=== PATIENT | male | born 1990 | race Caucasian/White ===

== ENCOUNTER 2019-11-01 13:09 | Emergency (ER) | payer MEDICARE, MEDICAID, SELFPAY ==
[2019-11-01 13:08] VITALS: BP 139/80; PULSE 95; RESP 16; TEMP 36.7; O2SAT 100
[2019-11-01 13:42] LABS: Basophils Absolute Auto 0.1 K/mm3 (0.0-0.1); Basophils Percent Auto 0.4 % (0.2-1.2); Eosinophils Percent Auto 0.3 % (0-4.4); Hematocrit 45.7 % (42.0-52.0); Hemoglobin 15.6 g/dL (14.0-18.0); Immature Granulocyte Absolute 0.04 K/mm3 (0.00-0.031); Immature Granulocyte Percent A 0.3 % (0-0.5); Lymphocytes Absolute Auto 1.97 K/mm3 (0.9-3.2); Mean Corpuscular HGB Conc 34.1 g/dl (32-36); Mean Corpuscular Hemoglobin 31.7 pg (26-34); Mean Corpuscular Volume 92.9 fl (80-100); Mean Platelet Volume 9.4 fl (7.4-10.4); Monocytes Percent Auto 8.1 % (2.6-8.5); Neutrophils Absolute Auto 9.2 K/mm3 (1.3-6.7); Neutrophils Percent Auto 74.9 % (45.5-73.1); Platelet Count Result 311 k/mm3 (150-375); Red Blood Count 4.92 M/mm3 (4.6-6.20); White Blood Count 12.3 K/mm3 (4.5-10.0)
[2019-11-01 13:57] LABS: Alanine Aminotransferase 25 U/L (4-50); Albumin Level 4.7 g/dL (3.5-5.1); Alkaline Phosphatase 92 U/L (38-126); Aspartate Amino Transferase 27 U/L (17-59); Bilirubin,Total 0.5 mg/dL (0.2-1.3); Blood Urea Nitrogen 15 mg/dL (9-20); Calcium 9.5 mg/dL (8.4-10.2); Carbon Dioxide 25 mmol/L (22-30); Chloride 104 mmol/L (98-107); Estimated CRCL calculation 119 ml/min; Estimated Glomerular Filt Rate > 60; Glucose 107 mg/dL (75-110); Potassium 4.5 mmol/L (3.4-5.0); Sodium 137 mmol/L (137-145)
[2019-11-01 13:59] LABS: Ethanol < 10 mg/dL (<10)
--- NOTE | 2019-11-01 14:07 | ED.GENADULT ---
HPI - General Adult General Chief complaint: Psychiatric Symptoms <EDILBERTO Vieira Last Filed: 11/01/19 21:36> Stated complaint: SI <EDILBERTO Vieira Last Filed: 11/01/19 21:36> Time Seen by Provider: 11/01/19 13:12 <EDILBERTO Vieira Last Filed: 11/01/19 21:36> Source: patient and EMS <EIDLBERTO Vieira Last Filed: 11/01/19 21:36> Mode of arrival: EMS <EDILBERTO Vieira Last Filed: 11/01/19 21:36> Limitations: no limitations <EDILBERTO Vieira Last Filed: 11/01/19 21:36> History of Present Illness HPI narrative: Patient is a 29-year-old male who presents with suicidal ideation longstanding history of self-harm suicidal attempts with recent hospitalization. Patient notes he was kicked out of the last psych hospitalization and has been off his medications. Patient also notes illicit drug dependence but denies any current use with typically using alcohol methamphetamine and cocaine. Patient is homeless. Patient notes desire to harm himself and does not feel like there is any reason to go on and is seeking help prior to doing any self-harm. <EDILBERTO Vieira Last Filed: 11/01/19 21:36> Related Data Home medications: Home Medications Medication Instructions Recorded Confirmed Thorazine 100 mg PO QID 11/01/19 bupropion HCl mg PO 11/01/19 clonazepam 1 mg PO BID 11/01/19 11/01/19 clonidine HCl TID 11/01/19 gabapentin 11/01/19 <EDILBERTO Vieira Last Filed: 11/01/19 21:36> Allergies/adverse reactions: Allergies Allergy/AdvReac Type Severity Reaction Status Date / Time haloperidol Allergy Unknown Muscle Verified 08/10/18 12:28 Spasms hydroxyzine [From Atarax] Allergy Unknown Unknown Verified 03/31/19 16:46 <EDILBERTO Vieira Last Filed: 11/01/19 21:36> Review of Systems Review of Systems: All systems reviewed & are unremarkable except as noted in HPI and below <EDILBERTO Vieira Last Filed: 11/01/19 21:36> [facility] Past Medical History Medical History: Medical History Anxiety Depression Previous known suicide attempt Schizophrenia Self-mutilation <Jayme Pretty PA-C - Last Filed: 11/01/19 21:36> Surgical History Surgical History: Surgical History No history of previous surgery <Jayme Pretty PA-C - Last Filed: 11/01/19 21:36> Social History Social History: Social History Smoking status: Smoker, status unknown Tobacco type: cigarettes Gender identity (if verbalized by the patient): Male <Jayme Pretty PA-C - Last Filed: 11/01/19 21:36> Exam Narrative: Exam Narrative: GENERAL: Well-appearing, well-nourished, and in no acute distress. HEAD: Normocephalic, atraumatic. EYES: PERRLA and EOMI. ENT: Nares clear, no rhinorrhea or epistaxis. Mucous membranes moist. Oropharynx without tonsillar hypertrophy exudate or other lesions. NECK: Supple. No adenopathy or masses. CHEST: Clear to auscultation. No respiratory distress. No wheezes rales or rhonchi HEART: Regular rate and rhythm. No murmur heard. Normal peripheral pulses. ABDOMEN: Soft, nontender, nondistended EXTREMITIES: Normal range of motion. No edema. SKIN: Warm, dry, no rash. NEURO: No focal deficits. Alert and oriented x3. Cranial nerves II through XII grossly intact PSYCH: Normal mood and affect. <Jayme Pretty PA-C - Last Filed: 11/01/19 21:36> Course Course Emergency Course: 2134 patient in the room stable in no distress pending psych placement Patient has been evaluated by crisis and is pending placement <Jayme Pretty PA-C - Last Filed: 11/01/19 21:36> [facility]/PA Physician Supervision Patient accepted for placement to [facility] in [place], [place]. Pt given ativan to help with anxiety t
[2019-11-01 14:13] LABS: Add Urine Microscopic? NO; Appearance Urine Clear (Clear); Bilirubin Urine Negative (Negative); Blood Urine Negative (Negative); Color Urine Yellow (Yellow); Glucose Urine UA Negative (Negative); Ketones Urine Negative (Negative); Leukocyte Esterase Ur Negative LEU/UL (Negative); Nitrate Urine Negative (Negative); Protein Urine Negative (Negative); Specific Grav Ur 1.015 (1.001-1.035); Urobilinogen Urine Negative mg/dL (<2.0)
[2019-11-01 14:29] LABS: Amphetamine Screen Urine Negative (Negative); Barbiturate Screen Urine Negative (Negative); Benzodiazepines Screen Urine Negative (Negative); Cannabinoid Screen Urine Positive (Negative); Cocaine Screen Urine Negative (Negative); Methadone Screen Urine Negative (Negative); Opiate Screen Urine Negative (Negative); Phencyclidine Screen Urine Negative (Negative)
--- NOTE | 2019-11-01 16:40 | PC.NURSE ---
Yusra from crisis here evaluated patent at this time
[2019-11-01 16:48] VITALS: BP 106/67; PULSE 82; O2SAT 100
[2019-11-01 18:35] VITALS: BP 122/82; PULSE 81; RESP 16; O2SAT 100
--- NOTE | 2019-11-01 18:49 | PC.NURSE ---
[facility] called and states they have no beds
--- NOTE | 2019-11-01 20:18 | PC.NURSE ---
Cris GREEN RN AT [facility] IN [facility] CALLED AT THIS TIME TO INFORM THIS ED THAT THEIR PHYSICIAN DECLINED TO ACCEPT THIS PT DUE TO THE NEED OF [facility] CARE.
--- NOTE | 2019-11-01 22:52 | PC.NURSE ---
PT PACKET FAXED TO [facility] AT [phone] AT 212.
[2019-11-02 00:11] VITALS: BP 125/82; PULSE 78; RESP 18; TEMP 36.7; O2SAT 99
[2019-11-02] MEDS: LORAZEPAM 1 MG TABLET (01:39)
--- NOTE | 2019-11-02 03:41 | PC.NURSE ---
Addendum entered by Natalya De Santiago 11/02/19 05:30: Called [facility], they do not have the resources at this time. Try after 07:00 Addendum entered by Natalya De Santiago 11/02/19 05:27: Called for status....[facility] still trying to find a crew for trip. Original Note: 0033: Called [facility] to transport to [facility] near [place]. They will call back with an ETA.
[2019-11-02 06:49] VITALS: BP 142/85; PULSE 86; RESP 17; TEMP 36.5; O2SAT 100
[2019-11-02 07:17] VITALS: BP 112/57; PULSE 73; RESP 18; TEMP 36.5; O2SAT 97
--- NOTE | 2019-11-02 12:21 | PC.NURSE ---
Report given to [facility] at this time, transferred to [facility] at this time.
== END 2019-11-02 12:21 ==
PROVIDERS: Emergency Medicine Emergency Medical Services; Emergency Provider Emergency Medicine
DX: R45.851 Suicidal ideations (principal); F41.9 Anxiety disorder, unspecified; F32.9 Major depressive disorder, single episode, unspecified; F20.9 Schizophrenia, unspecified; F17.210 Nicotine dependence, cigarettes, uncomplicated; Z79.899 Other long term (current) drug therapy
CPT/HCPCS: 36415; 80053; 80307; 81003; 84443; 85025; 99285; A9270

== ENCOUNTER 2021-12-20 18:27 | Emergency (ER) | payer MEDICARE, MEDICAID, SELFPAY ==
--- NOTE | ~2021-12-20 | CT_ITS ---
EXAMINATION: CT soft tissue neck w con DATE: 12/20/2021 20:38 INDICATION: Tracheal stenosis TECHNIQUE: Computed tomography (CT) of the neck was performed with 75 mL Omnipaque-350 intravenous co ntrast. Automated exposure control and iterative reconstruction technique were employed. The dose-deniz gth product was 605.28 mGy-cm. COMPARISON: None FINDINGS: The thyroid gland is unremarkable. The submandibular and parotid glands are symmetric. There is n o cervical lymphadenopathy. There are no masses identified. The superior mediastinum is unremarka ble. Narrowing of the subglottic trachea, minimum diameter is 4 mm. Minimal secretions present in t he lower thoracic trachea. Parapharyngeal and pre-glottic fat planes are preserved. Arch great vess els carotids and vertebral arteries enhance normally. The orbits are unremarkable. Bilateral mucos al thickening in the maxillary sinuses. Visualized lung parenchyma is clear. No acute osseous findi ng. Periodontal disease. 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 Minimal secretions are present in the distal thoracic trachea. Reviewed, dictated and finalized at location K.
--- NOTE | ~2021-12-20 | XR_ITS ---
EXAMINATION: XR chest 2V Exam Date/Time: 12/20/2021 18:56 CDT HISTORY: shortness of breath; tracheostomy 1 mo ago; diaphoretic Comparison: None available. RESULT: Lines, tubes, and devices: None. Lungs and pleura: Clear. Cardiomediastinal silhouette: Stable. Other: No acute osseous or upper abdominal finding. IMPRESSION: No acute cardiopulmonary process. Reviewed, dictated and finalized at location K.
[2021-12-20 18:29] VITALS: BP 140/109; PULSE 130; RESP 26; TEMP 37.2; O2SAT 97
[2021-12-20 18:40] VITALS: PULSE 130
--- NOTE | 2021-12-20 18:42 | ECG_ITS ---
Measurements Intervals [place] Rate: 124 P: 27 AK: 149 QRS: 38 QRSD: 84 T: 26 QT: 300 QTc: 432 Interpretive Statements SINUS TACHYCARDIA WITH OCCASIONAL VENTRICULAR PREMATURE COMPLEXES LOW QRS VOLTAGE COMPARED TO ECG 08/10/2018 13:23:15 SINUS TACHYCARDIA NOW PRESENT Electronically Signed On 12-21-2021 14:17:12 CDT by Yayo Murillo M.D.
[2021-12-20 18:49] LABS: Basophils Absolute Auto 0.1 K/mm3 (0.0-0.1); Basophils Percent Auto 0.4 % (0.2-1.2); Eosinophils Absolute Auto 0.2 K/mm3 (0-0.3); Eosinophils Percent Auto 1.2 % (0-4.4); Hematocrit 49.8 % (42.0-52.0); Immature Granulocyte Absolute 0.03 K/mm3 (0.00-0.031); Immature Granulocyte Percent A 0.2 % (0-0.5); Lymphocytes Absolute Auto 3.82 K/mm3 (0.9-3.2); Lymphocytes Percent Auto 26.2 % (18.3-44.2); Mean Corpuscular HGB Conc 32.1 g/dl (32-36); Mean Corpuscular Hemoglobin 29.7 pg (26-34); Mean Corpuscular Volume 92.4 fl (80-100); Mean Platelet Volume 9.8 fl (7.4-10.4); Monocytes Absolute Auto 1.2 K/mm3 (0.1-0.6); Monocytes Percent Auto 8.2 % (2.6-8.5); Neutrophils Absolute Auto 9.3 K/mm3 (1.3-6.7); Neutrophils Percent Auto 63.8 % (45.5-73.1); Platelet Count Result 330 k/mm3 (150-375); Red Blood Count 5.39 M/mm3 (4.6-6.20); Red Cell Distribution Width 14.5 % (11.5-14.5); White Blood Count 14.6 K/mm3 (4.5-10.0)
[2021-12-20] MEDS: IPRATROPIUM BR 0.02% INH SOLN 0.5 MG/2.5 ML VIAL INHALATION (19:10)
[2021-12-20 19:12] VITALS: PULSE 99; RESP 18
[2021-12-20 19:17] VITALS: PULSE 115; RESP 18
--- NOTE | 2021-12-20 19:38 | ED.SOB ---
HPI - SOB/Dyspnea General Chief Complaint: Shortness of Breath/Dyspnea <Donald Rouse MD - Last Filed: 12/20/21 22:15> Stated Complaint: shortness of breath <Donald Rouse MD - Last Filed: 12/20/21 22:15> Time Seen by Provider: 12/20/21 18:48 <Donald Rouse MD - Last Filed: 12/20/21 22:15> History of Present Illness HPI Narrative: Patient is a 31-year-old male who presents ER with shortness of breath. Patient has history of tracheostomy due to an overdose and prolonged intubation. This occurred at [facility] in [place]. He then went to [facility] for rehab. We then could find no other placement for him so he was discharged home to his father's house a couple weeks ago. His trach was removed and he reports he has had difficulty breathing since then. Reports he feels like he is breathing through a straw. However last couple days he has had some runny nose with postnasal drip. He feels it running down his throat makes him cough. He occasionally feels like something gets stuck and he cannot breathe. Upon arrival he is diaphoretic and having some stridor but can speak in full sentences. <Donald Rouse MD - Last Filed: 12/20/21 22:15> Related Data Allergies/Adverse Reactions: Allergies Allergy/AdvReac Type Severity Reaction Status Date / Time No Known Allergies Allergy Verified 12/20/21 18:35 <Donald Rouse MD - Last Filed: 12/20/21 22:15> Review of Systems Review of Systems: All systems reviewed & are unremarkable except as noted in HPI and below <Donald Rouse MD - Last Filed: 12/20/21 22:15> Constitutional: Constitutional: Denies chills and Denies fever(s) <Donald Rouse MD - Last Filed: 12/20/21 22:15> ENT: Reports nasal congestion <Donald Rouse MD - Last Filed: 12/20/21 22:15> Respiratory: Respiratory: Reports cough, Reports dyspnea and Denies wheezing <Donald Rouse MD - Last Filed: 12/20/21 22:15> Gastrointestinal: Gastrointestinal: Denies abdominal pain, Denies nausea and Denies vomiting <Donald Rouse MD - Last Filed: 12/20/21 22:15> PMFSH Past Medical History Medical History: Medical History (Updated 12/21/21 @ 01:54 by Anthony Jones MD) Anxiety Depression Previous known suicide attempt Schizophrenia Self-mutilation <Donald Rouse MD - Last Filed: 12/20/21 22:15> Surgical History Surgical History: Surgical History (Updated 12/20/21 @ 22:15 by Donald Rouse MD) History of tracheostomy <Donald Rouse MD - Last Filed: 12/20/21 22:15> Social History Social History: Social History Smoking status: Smoker, status unknown Tobacco type: cigarettes Gender identity (if verbalized by the patient): Male <Donald Rouse MD - Last Filed: 12/20/21 22:15> Exam Narrative: GENERAL: Uncomfortable-appearing, well-nourished, and in moderately distressed. HEAD: Normocephalic, atraumatic. EYES: PERRL and EOMI. ENT: Mucous membranes moist. Normal-appearing posterior oropharynx without tonsillar hypertrophy or uvular edema. CHEST: Clear to auscultation. Moderate respiratory distress. There is some inspiratory stridor intermittently. Patient can speak in full sentences. HEART: Tachycardic and regular. Normal peripheral pulses. ABDOMEN: Soft, nontender, nondistended. EXTREMITIES: Normal range of motion. No edema. SKIN: Warm, dry, no rash. NEURO: Alert and oriented x3. PSYCH: Normal mood and affect. <Donald Rouse MD - Last Filed: 12/20/21 22:15> Course Reevaluation(s) Reevaluation #1: Patient laying in bed resting comfortably. There is no stridor at this time and he has no distress. He is receiving nebulizer treatment as well as some IV steroids. Imaging shows tracheal stenosis at 4 mm at the narrowest portion. We will contact [facility] for possible transfer next for evaluat
[2021-12-20] MEDS: methylPREDNISolone SOD SUCC 125 MG VIAL IV PUSH (19:53)
[2021-12-20] MEDS: SODIUM CHLORIDE 0.9% IV 1,000 ML 999 ML IV CONT (19:54)
[2021-12-20 20:00] LABS: Amphetamine Screen Urine Negative (Negative); Barbiturate Screen Urine Negative (Negative); Benzodiazepines Screen Urine Negative (Negative); Cannabinoid Screen Urine Positive (Negative); Cocaine Screen Urine Negative (Negative); Methadone Screen Urine Negative (Negative); Opiate Screen Urine Negative (Negative); Phencyclidine Screen Urine Negative (Negative)
[2021-12-20 20:01] LABS: Alanine Aminotransferase 37 U/L (6-50); Albumin Level 4.4 g/dL (3.5-5.1); Alkaline Phosphatase 76 U/L (38-126); Anion Gap 11 mmol/L (8-16); Aspartate Amino Transferase 26 U/L (17-59); Bilirubin,Total 0.3 mg/dL (0.2-1.3); Blood Urea Nitrogen 13 mg/dL (9-20); Calcium 8.6 mg/dL (8.4-10.2); Carbon Dioxide 26 mmol/L (22-30); Chloride 105 mmol/L (98-107); Estimated CRCL calculation 151 ml/min; Estimated Glomerular Filt Rate > 60; Glucose 113 mg/dL (65-110); Sodium 142 mmol/L (137-145)
[2021-12-20 22:32] LABS: SARS-CoV-2 RNA PCR Negative
--- NOTE | 2021-12-20 23:16 | PC.NURSE ---
Report received from STEVO Ponce. This nurse assumed care of patient at this time.
[2021-12-21 00:46] VITALS: BP 154/73; PULSE 111; RESP 20; O2SAT 98
[2021-12-21 02:16] VITALS: BP 159/89; PULSE 111; RESP 13; O2SAT 99
== END 2021-12-21 02:07 | disposition short-term general hospital (02) ==
PROVIDERS: Emergency Provider Emergency Medicine
DX: J39.8 Other specified diseases of upper respiratory tract (principal); Z20.822 Contact with and (suspected) exposure to COVID-19; R00.0 Tachycardia, unspecified; I49.3 Ventricular premature depolarization
CPT/HCPCS: 36415; 70491; 71046; 80053; 80307; 85025; 93005; 94640; 96361; 96374; 99285; C9803; J2930; J7030; Q9967; U0003; U0005

== ENCOUNTER 2021-12-25 18:21 | Emergency (ER) | payer MEDICARE, MEDICAID, SELFPAY ==
[2021-12-25 18:24] VITALS: BP 148/91; PULSE 119; RESP 16; TEMP 36.9; O2SAT 100
--- NOTE | 2021-12-25 18:58 | ED.SKABFB ---
HPI - Skin/Abscess/Foreign Bdy General Chief complaint: Skin/Abscess/Foreign Body Stated complaint: swelling from iv site Time Seen by Provider: 12/25/21 18:42 Source: patient Mode of arrival: ambulatory Limitations: no limitations History of Present Illness HPI narrative: This is a 31 year old male that presents to the ER for left arm pain and swelling today. Reports at the area of his recent IV site. Was admitted for surgery at [facility] due to tracheal stenosis. Was discharged 2 days ago. Noted redness, swelling and abnormal drainage from the IV site. Also reports a previous injury to the right 5th finger. Has had ongoing pain for the last couple of months. Denies fever, chest pain or shortness of breath. Related Data Allergies Allergy/AdvReac Type Severity Reaction Status Date / Time No Known Allergies Allergy Verified 12/20/21 18:35 Review of Systems Review of Systems: CONSTITUTIONAL: Denies fever SKIN: Reports erythema and edema All systems reviewed & are unremarkable except as noted in HPI and below PMFSH Past Medical History Medical History (Updated 12/25/21 @ 19:15 by Misti Kay PA-C) Anxiety Depression Previous known suicide attempt Schizophrenia Self-mutilation Surgical History Surgical History (Updated 12/20/21 @ 22:15 by Donald Rouse MD) History of tracheostomy Social History Social History Smoking status: Smoker, status unknown Tobacco type: cigarettes Gender identity (if verbalized by the patient): Male Exam Narrative: GENERAL: Well-appearing, well-nourished, and in no acute distress. HEAD: Normocephalic, atraumatic. EYES: EOMI. CHEST: No respiratory distress. HEART: Regular rate EXTREMITIES: Normal range of motion. Mild edema with overlying erythema to the left AC with purulent drainage noted at IV site. Normal radial pulses. Normal sensation SKIN: Warm, dry, no rash. NEURO: No focal deficits. Alert and oriented x3. PSYCH: Normal mood and affect Course Vital Signs Vital signs: Vital Signs Temperature 98.5 F 12/25/21 18:24 Pulse Rate 119 H 12/25/21 18:24 Respiratory Rate 16 12/25/21 18:24 Blood Pressure 148/91 H 12/25/21 18:24 Pulse Oximetry 100 12/25/21 18:24 Oxygen Delivery Room Air 12/25/21 18:24 Temperature 98.5 F 12/25/21 18:24 Pulse Rate 119 H 12/25/21 18:24 Respiratory Rate 16 12/25/21 18:24 Blood Pressure 148/91 H 12/25/21 18:24 Pulse Oximetry 100 12/25/21 18:24 Oxygen Delivery Room Air 12/25/21 18:24 MDM - Skin/Abscess/Foreign Bdy MDM Narrative Medical decision making narrative: Patient presents to the emergency departments with redness and swelling of the left arm after recent IV insertion. Patient is afebrile. Tachycardic upon arrival. IV insertion site with notable superlative thrombophlebitis. Laboratory and imaging evaluation was ordered. I did do a culture of the purulent drainage from the area. Patient then eloped after being seen, and before any further evaluation and management Critical Care Time Critical Care Time Critical Care Time: No Discharge Plan Discharge Clinical Impression: Thrombophlebitis, Cellulitis Patient Disposition: Elopement After Seen by Prov Condition: Serious Follow-up/Referrals: PHYSICIAN,HUMAN RESOURCES ASSISTANT [Primary Care Provider] -
--- NOTE | 2021-12-25 19:20 | PC.NURSE ---
IN ROOM TO DRAW BLOOD AND PT IS AGITATED YELLING ABOUT NOT GETTING NARCOTICS IN THE ED. 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 PT ENCOURAGE TO STAY FOR EVALUATION BUT REFUSED AND YELLED I DON'T CARE IF MY FUCKING ARM ROTS OFF.
== END 2021-12-25 19:23 | disposition left against medical advice (07) ==
LOC: ANHED 19:20
PROVIDERS: Emergency Provider General Practice
DX: T80.1XXA Vascular complications following infusion, transfusion and therapeutic injection, initial encounter (principal); I80.8 Phlebitis and thrombophlebitis of other sites; T80.29XA Infection following other infusion, transfusion and therapeutic injection, initial encounter; L03.114 Cellulitis of left upper limb; Y84.8 Other medical procedures as the cause of abnormal reaction of the patient, or of later complication, without mention of misadventure at the time of the procedure
CPT/HCPCS: 87070; 87147; 87181; 87186; 87205; 99283

== ENCOUNTER 2022-02-08 11:11 | Emergency (ER) | payer MEDICARE, MEDICAID, SELFPAY ==
--- NOTE | ~2022-02-08 | XR_ITS ---
EXAMINATION: XR chest 2V 02/08/2022 13:45 INDICATION: Dyspnea PROCEDURE: 2 view chest COMPARISON: 12/20/2021 FINDINGS: The lungs are clear. The cardiomediastinal silhouette is within normal limits. There are no pleural effusions. There is no pneumothorax suspected. IMPRESSION: 1: NO ACUTE CARDIOPULMONARY DISEASE. Reviewed, dictated and finalized at location B.
[2022-02-08 11:14] VITALS: BP 148/90; PULSE 126; RESP 18; TEMP 37; O2SAT 99
--- NOTE | 2022-02-08 11:18 | ECG_ITS ---
Measurements Intervals [place] Rate: 117 P: 38 PA: 139 QRS: 16 QRSD: 98 T: 32 QT: 284 QTc: 396 Interpretive Statements SINUS TACHYCARDIA DELAYED PRECORDIAL R/S TRANSITION BASELINE ARTIFACT- I, II, AVR, AVL, AVF, V1 ABNORMAL ECG COMPARED TO ECG 12/20/2021 18:53:46 NO SIGNIFICANT CHANGES Electronically Signed On 02-08-2022 11:31:01 CDT by Cheo Vazquez D.O.
[2022-02-08 12:04] LABS: Basophils Absolute Auto 0.1 K/mm3 (0.0-0.1); Basophils Percent Auto 0.4 % (0.2-1.2); Eosinophils Percent Auto 0.1 % (0-4.4); Hematocrit 46.5 % (42.0-52.0); Immature Granulocyte Absolute 0.09 K/mm3 (0.00-0.031); Immature Granulocyte Percent A 0.5 % (0-0.5); Lymphocytes Absolute Auto 1.94 K/mm3 (0.9-3.2); Lymphocytes Percent Auto 10.8 % (18.3-44.2); Mean Corpuscular HGB Conc 32.3 g/dl (32-36); Mean Corpuscular Hemoglobin 30.4 pg (26-34); Mean Corpuscular Volume 94.1 fl (80-100); Mean Platelet Volume 9.4 fl (7.4-10.4); Monocytes Absolute Auto 0.8 K/mm3 (0.1-0.6); Monocytes Percent Auto 4.4 % (2.6-8.5); Neutrophils Absolute Auto 15.1 K/mm3 (1.3-6.7); Neutrophils Percent Auto 83.8 % (45.5-73.1); Platelet Count Result 352 k/mm3 (150-375); Red Blood Count 4.94 M/mm3 (4.6-6.20); Red Cell Distribution Width 14.6 % (11.5-14.5)
[2022-02-08 12:14] LABS: Alanine Aminotransferase 34 U/L (6-50); Albumin Level 5.3 g/dL (3.5-5.1); Alkaline Phosphatase 89 U/L (38-126); Anion Gap 14 mmol/L (8-16); Aspartate Amino Transferase 31 U/L (17-59); Bilirubin,Total 0.6 mg/dL (0.2-1.3); Blood Urea Nitrogen 13 mg/dL (9-20); Carbon Dioxide 25 mmol/L (22-30); Chloride 100 mmol/L (98-107); Estimated CRCL calculation 131 ml/min; Estimated Glomerular Filt Rate > 60; Glucose 74 mg/dL (65-110); Potassium 3.9 mmol/L (3.4-5.0); Sodium 139 mmol/L (137-145)
[2022-02-08 13:48] LABS: SARS-CoV-2 RNA PCR Negative
[2022-02-08 14:15] LABS: Appearance Urine Clear (Clear); Bilirubin Urine Negative (Negative); Blood Urine Negative (Negative); Color Urine Yellow (Yellow); Glucose Urine UA Negative (Negative); Ketones Urine Negative (Negative); Leukocyte Esterase Ur Negative LEU/UL (Negative); Nitrate Urine Negative (Negative); Protein Urine Negative (Negative); Urobilinogen Urine 0.2 mg/dL (<2.0); pH Urine 6.5 (5.0-9.0)
--- NOTE | 2022-02-08 14:15 | ED.PSYCH ---
HPI - Psych General Chief Complaint: Psychiatric Symptoms <Nakita Lane Shelton PAL, DO - Last Filed: 02/08/22 19:14> Stated Complaint: Fatigue after walking a few miles <Nakita Peoples III, DO - Last Filed: 02/08/22 19:14> Time Seen by Provider: 02/08/22 13:34 <Nakita Peoples III, DO - Last Filed: 02/08/22 19:14> History of Present Illness HPI Narrative: Pt walked a significant distance to a [employer] store to get something to drink and then said he was having trouble breathing so they called 911. Pt states that he has lost all will to live and wants to kill self by taking overdose which he has done in the recent past which led to intubation and a tracheostomy. Pt has had intermittent trouble with trach ostomy site but has not followed up yet with surgery. <Nakita Peoples III, DO - Last Filed: 02/08/22 19:14> Related Data Home Medications: Home Medications Medication Instructions Recorded Confirmed albuterol sulfate 90 mcg/actuation inhalation 02/09/22 aerosol inhaler budesonide-formoterol HFA 80 inhalation 02/09/22 mcg-4.5 mcg/actuation aerosol inhaler (Symbicort) bupropion HCl 450 mg 24 hr tablet, mg PO 02/09/22 extended release buspirone 15 mg tablet mg 02/09/22 carbamazepine 200 mg tablet mg 02/09/22 chlorpromazine 100 mg tablet mg 02/09/22 clonazepam 0.5 mg tablet mg 02/09/22 clonidine HCl 0.2 mg tablet mg 02/09/22 gabapentin 600 mg tablet mg 02/09/22 lorazepam 0.5 mg tablet mg 02/09/[address] <Nakita [address] Shelton III, DO - Last Filed: 02/08/22 19:14> Allergies/Adverse Reactions: Allergies Allergy/AdvReac Type Severity Reaction Status Date / Time No Known Allergies Allergy Verified 12/20/21 18:35 <Nakita Peoples DEMARCO, DO - Last Filed: 02/08/22 19:14> Review of Systems Review of Systems: All systems reviewed & are unremarkable except as noted in HPI and below <Nakita Peoples III, DO - Last Filed: 02/08/22 19:14> PMFSH Past Medical History Medical History: Medical History (Updated 02/08/22 @ 14:[address] Shelton PAL DO) Anxiety Depression Previous known suicide attempt Schizophrenia Self-mutilation <Nakita Lane Peoples III, DO - Last Filed: 02/08/22 19:14> Surgical History Surgical History: Surgical History (Updated 12/20/21 @ 22:15 by Donald Rouse MD) History of tracheostomy <Nakita Lane Peoples III, DO - Last Filed: 02/08/22 19:14> Social History Social History: Social History Smoking status: Smoker, status unknown Tobacco type: cigarettes Substance use type: former substance user Gender identity (if verbalized by the patient): Male <Nakita Lane Peoples III, DO - Last Filed: 02/08/22 19:14> Exam Const: General: healthy appearing and no acute distress <Nakita Lane Peoples III, DO - Last Filed: 02/08/22 19:14> Nutritional Appearance: well nourished <Nakita Lane Peoples III, DO - Last Filed: 02/08/22 19:14> Orientation/consciousness: patient oriented x3 <Nakita Lane Peoples III, DO - Last Filed: 02/08/22 19:14> Limitations: no limitations <Nakita Lane Peoples III, DO - Last Filed: 02/08/22 19:14> HENMT: Head: normal to inspection <Nakita Lane Peoples III, DO - Last Filed: 02/08/22 19:14> Throat: posterior oropharynx normal <Nakita Lane Peoples III, DO - Last Filed: 02/08/22 19:14> Eyes: Conjunctivae: conjunctivae normal <Nakita Lane Peoples III, DO - Last Filed: 02/08/22 19:14> EOM: EOMs intact bilaterally <Nakita Lane Peoples III, DO - Last Filed: 02/08/22 19:14> Neck: Other: trach site looks ok <Nakita Lane Peoples III, DO - Last Filed: 02/08/22 19:14> Chest: Chest palpation & inspection: normal inspection of the chest <Nakita Lane Peoples III, DO - Last Filed: 02/08/22 19:14> Resp: Effort & Inspection: normal respiratory effort <Nakita Lane Peoples III, DO - Last Filed: 02/08/22 19:14> Auscultation: clear to auscultation bilaterall
[2022-02-08 14:25] LABS: Amphetamine Screen Urine Negative (Negative); Barbiturate Screen Urine Negative (Negative); Benzodiazepines Screen Urine Negative (Negative); Cannabinoid Screen Urine Positive (Negative); Cocaine Screen Urine Negative (Negative); Methadone Screen Urine Negative (Negative); Opiate Screen Urine Negative (Negative); Phencyclidine Screen Urine Negative (Negative)
[2022-02-08 14:43] LABS: Add Urine Microscopic? NO
[2022-02-08] MEDS: LORazepam (*CRX) 1 MG TABLET PO (14:58)
--- NOTE | 2022-02-08 16:06 | PC.NURSE ---
crisis here to evaluate pt.
--- NOTE | 2022-02-08 17:04 | PC.NURSE ---
Jacque from [facility] called and states they are at capacity.
--- NOTE | 2022-02-08 17:28 | PC.NURSE ---
[facility] called to speak with patient and do an assessment. Spoke with Jasmina from [facility] after the assessment and she states pt. is not wanting to go to their facility.
--- NOTE | 2022-02-08 18:58 | PC.NURSE ---
[facility] called requesting more information on pt. they state they will relay to the physician and call back with any updates.
--- NOTE | 2022-02-08 20:13 | PC.NURSE ---
barbara from dr venegas to order captain room service meds x1 at [facility]
[2022-02-08] MEDS: busPIRone HCL 10 MG, busPIRone HCL 5 MG 15 MG PO (20:48)
[2022-02-08] MEDS: chlorproMAZINE HCL 25 MG TABLET 100 MG PO (20:49)
[2022-02-08] MEDS: GABAPENTIN 300 MG CAPSULE 600 MG PO (20:49)
[2022-02-08] MEDS: carBAMazepine 200 MG TABLET PO (20:49)
[2022-02-08] MEDS: cloNIDine HCL 0.1 MG TABLET 0.2 MG PO (20:54)
[2022-02-09] MEDS: diphenhydrAMINE HCl INJ 50 MG/ML VIAL IM (00:40)
[2022-02-09] MEDS: LORazepam INJ (*CRX) 2 MG/ML VIAL IM (00:40)
--- NOTE | 2022-02-09 03:10 | PC.NURSE ---
Patient report received from STEVO Malhotra. All questions answered and care of patient assumed. Patient resting quietly in bed with lights dimmed. Eyes closed with regular, non-labored respirations. Patient safety lamp keeper remains at bedside. Will continue to address needs as they arise.
[2022-02-09 06:35] VITALS: BP 142/93; PULSE 80; RESP 14; TEMP 36.5; O2SAT 98
[2022-02-09] MEDS: ALBUTEROL SULFATE NEB 2.5 MG/3 ML INH 5 MG INHALATION (07:13)
--- NOTE | 2022-02-09 07:15 | PC.NURSE ---
Patient yelling out aggressively demanding breathing treatment and asking what is taking so long. Patient remains lying in bed but yelling profanity loudly. at bedside. and Efrain KOENIG contacted for support.
[2022-02-09] MEDS: LORazepam (*CRX) 1 MG TABLET PO (07:49)
--- NOTE | 2022-02-09 07:50 | PC.NURSE ---
Awaiting placement for psych bed. Intermittently yells out and curses. Sitter at bedside.
--- NOTE | 2022-02-09 08:20 | PC.NURSE ---
Pt standing in doorway of room. States he is no longer suicidal and wants to be discharged. Requests to speak to ERP.
== END 2022-02-09 08:47 | disposition home or self-care (01) ==
PROVIDERS: Emergency Provider Emergency Medicine
DX: F32.A Depression, unspecified (principal); Z20.822 Contact with and (suspected) exposure to COVID-19; F41.9 Anxiety disorder, unspecified; F20.9 Schizophrenia, unspecified; F17.210 Nicotine dependence, cigarettes, uncomplicated; Z79.899 Other long term (current) drug therapy
CPT/HCPCS: 36415; 71046; 80053; 80307; 81003; 85025; 93005; 94640; 96372; 99284; A9270; C9803; J1200; J2060; U0003; U0005

== ENCOUNTER 2022-05-17 01:20 | Emergency (ER) | payer MEDICARE, MEDICAID, SELFPAY ==
[2022-05-17] VITALS (11 sets, daily range): BP systolic 135–157; BP diastolic 102–120; PULSE 96–123; RESP 16–24; TEMP 36.4–36.9; O2SAT 91–96
--- NOTE | ~2022-05-17 | XR_ITS ---
EXAMINATION: XR hand RT min 3V DATE: 05/17/2022 05:25 INDICATION: Right hand pain. TECHNIQUE: 3 views of right hand were obtained. COMPARISON: None. FINDINGS: Bone alignment is normal. No fracture. There is mild osteoarthritis of first carpometacarpa l joint, first metacarpophalangeal joint, and first interphalangeal joint. IMPRESSION: 1. Mild polyarticular osteoarthritis. Reviewed, dictated and finalized at location A. LE ARCHITECT
--- NOTE | ~2022-05-17 | CT_ITS ---
EXAMINATION: CT soft tissue neck w con DATE: 05/17/2022 08:01 INDICATION: Tracheal stenosis. TECHNIQUE: Computed tomography (CT) of the neck was performed with 75 mL Omnipaque-350 intravenous co ntrast. Automated exposure control and iterative reconstruction technique were employed. The dose-deniz gth product was 565.06 mGy-cm. COMPARISON: CTA neck 12/20/2021 FINDINGS: There are no pathologically enlarged lymph nodes. The cervical carotid arteries are normal. There is a 9 mm nodule in right thyroid lobe, likely not clinically significant. Again seen is focal stenosis of the trachea at the site of prior tracheostomy measuring 4 x 5 mm. There is mild mucosal thickening in the paranasal sinuses. There are periapical lucencies around tooth 25. There are multip le broken molars. There is a carious lesion of tooth 14. There is mild cervical spondylosis. IMPRESSION: 1. Focal tracheal stenosis at the site of prior tracheostomy again seen. 2. Dental disease. Reviewed, dictated and finalized at location A. S ASSISTANT AND FEEDER
--- NOTE | ~2022-05-17 | XR_ITS ---
EXAMINATION: XR chest 1V portable DATE: 05/17/2022 04:20 INDICATION: Cough. TECHNIQUE: A single frontal view of the chest was obtained. COMPARISON: Chest 2 views 02/08/2022, neck CT 12/20/2021 FINDINGS: There is mild atelectasis in the lower lung zones. No pleural effusion or pneumothorax. The heart size is normal. IMPRESSION: 1. Mild atelectasis in the lower lung zones. Reviewed, dictated and finalized at location A. OGRAPHIC TECHNOLOGIST
--- NOTE | 2022-05-17 02:45 | PC.NURSE ---
patient continues to pace and talk loudly on the phone and to noone about wait time and how he needs to be seen last time the rushed me back pateint then begans stating i know they are going to drug test me and what they find is not why im here
--- NOTE | 2022-05-17 03:55 | PC.NURSE ---
Patient states I just want to know what I was given on new years when I was given pot. Patient states I need a xray of my hand, I ave been hallucinating, been scatter brain and SI and HI for the past few days and havent slept since then. Patient states he needs multiple things done before I leave here.
[2022-05-17] MEDS: LORazepam (*CRX) 1 MG TABLET PO (04:20)
[2022-05-17 04:56] LABS: Basophils Absolute Auto 0.1 K/mm3 (0.0-0.1); Basophils Percent Auto 0.6 % (0.2-1.2); Eosinophils Absolute Auto 0.2 K/mm3 (0-0.3); Eosinophils Percent Auto 1.6 % (0-4.4); Hematocrit 45.3 % (42.0-52.0); Hemoglobin 14.7 g/dL (14.0-18.0); Immature Granulocyte Absolute 0.05 K/mm3 (0.00-0.031); Immature Granulocyte Percent A 0.4 % (0-0.5); Immature Platelet Fraction Pct 2.9 % (0.9-11.2); Lymphocytes Absolute Auto 2.97 K/mm3 (0.9-3.2); Lymphocytes Percent Auto 25.3 % (18.3-44.2); Mean Corpuscular HGB Conc 32.5 g/dl (32-36); Mean Corpuscular Hemoglobin 31.4 pg (26-34); Mean Corpuscular Volume 96.8 fl (80-100); Mean Platelet Volume 9.6 fl (7.4-10.4); Monocytes Percent Auto 8.2 % (2.6-8.5); Neutrophils Absolute Auto 7.5 K/mm3 (1.3-6.7); Neutrophils Percent Auto 63.9 % (45.5-73.1); Platelet Count Result 293 k/mm3 (150-375); Red Blood Count 4.68 M/mm3 (4.6-6.20); Red Cell Distribution Width 12.8 % (11.5-14.5); White Blood Count 11.8 K/mm3 (4.5-10.0)
[2022-05-17 05:03] LABS: Ethanol < 10 mg/dL (<10)
[2022-05-17 05:09] LABS: Alanine Aminotransferase 28 U/L (6-50); Albumin Level 4.7 g/dL (3.5-5.1); Alkaline Phosphatase 96 U/L (38-126); Anion Gap 10 mmol/L (8-16); Aspartate Amino Transferase 30 U/L (17-59); Bilirubin,Total 0.5 mg/dL (0.2-1.3); Blood Urea Nitrogen 16 mg/dL (9-20); Calcium 8.7 mg/dL (8.4-10.2); Carbon Dioxide 27 mmol/L (22-30); Chloride 103 mmol/L (98-107); Estimated Glomerular Filt Rate > 60; Glucose 93 mg/dL (65-110); Potassium 4.3 mmol/L (3.4-5.0); Sodium 140 mmol/L (137-145)
[2022-05-17 05:15] LABS: Influenza A QL RT-PCR Negative (Negative); Influenza B QL RT-PCR Negative (Negative); SARS-CoV-2 RNA PCR Negative
[2022-05-17] MEDS: IBUPROFEN 600 MG TABLET PO (05:25)
--- NOTE | 2022-05-17 05:49 | PC.NURSE ---
Patient yelling in room speaking with the voices in my head.
[2022-05-17] MEDS: IPRATROPIUM BR 0.02% INH SOLN 0.5 MG/2.5 ML VIAL INHALATION (05:50)
--- NOTE | 2022-05-17 06:46 | PC.NURSE ---
Patient in CT at this time.
--- NOTE | 2022-05-17 06:50 | ED.GENADULT ---
HPI - General Adult General Chief complaint: Shortness of Breath/Dyspnea <Yoan Enamorado DO - Last Filed: 05/17/22 06:53> Stated complaint: sob <Yoan Enamorado DO - Last Filed: 05/17/22 06:53> Time Seen by Provider: 05/17/22 03:53 <Yoan Enamorado DO - Last Filed: 05/17/22 06:53> Source: RN notes reviewed <Yoan Enamorado DO - Last Filed: 05/17/22 06:53> History of Present Illness HPI narrative: Patient presents emergency department from home for multiple complaints. Patient's initial complaint is that he has been short of breath. 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 States he does feel short of breath with the symptoms. He denies any fevers or chills he denies any chest pain he denies any abdominal pain nausea vomiting patient also notes pain to his right fifth digit states that this has been ongoing for the past month and a half states he does not want to tell me how it happened because that would incriminate himself but states that it has been mildly deformed since that time he also states that he has been having suicidal thoughts today he states he had suicidal thoughts earlier today states he has suicidal thoughts frequently he denies any attempt to harm himself he states that he is currently not suicidal <Yoan Enamorado DO - Last Filed: 05/17/22 06:53> Related Data Home medications: Home Medications Medication Instructions Recorded Confirmed albuterol sulfate 90 mcg/actuation inhalation 02/09/22 aerosol inhaler budesonide-formoterol HFA 80 inhalation 02/09/22 mcg-4.5 mcg/actuation aerosol inhaler (Symbicort) bupropion HCl 450 mg 24 hr tablet, mg PO 02/09/22 extended release buspirone 15 mg tablet mg 02/09/22 carbamazepine 200 mg tablet mg 02/09/22 chlorpromazine 100 mg tablet mg 02/09/22 clonazepam 0.5 mg tablet mg 02/09/22 clonidine HCl 0.2 mg tablet mg 02/09/22 gabapentin 600 mg tablet mg 02/09/22 lorazepam 0.5 mg tablet mg 02/09/22 <Yoan Enamorado DO - Last Filed: 05/17/22 06:53> Allergies/adverse reactions: Allergies Allergy/AdvReac Type Severity Reaction Status Date / Time No Known Allergies Allergy Verified 12/20/21 18:35 <Yoan Enamorado DO - Last Filed: 05/17/22 06:53> Review of Systems Review of Systems: Gen.: Denies fevers or chills Eyes: Denies eye pain or visual change ENT: Denies congestion Respiratory: See HPI CV: Denies chest pain or palpitations GI: Denies abdominal pain nausea, emesis or diarrhea Musculoskeletal: See HPI Neuro: Denies numbness, tingling, weakness or focal weakness Skin: Denies rash Psych: Reports suicidal ideation Except as documented, all other systems reviewed and negative <Yoan Enamorado DO - Last Filed: 05/17/22 06:53> PMF Past Medical History Medical History: Medical History Anxiety Depression Previous known suicide attempt Schizophrenia Self-mutilation <Yoan Enamorado DO - Last Filed: 05/17/22 06:53> Surgical History Surgical History: Surgical History (Updated 12/20/21 @ 22:15 by Donald Rouse MD) History of tracheostomy <Yoan Enamorado DO - Last Filed: 05/17/22 06:53> Social History Social History: Social History Smoking status: Smoker, status unknown Tobacco type: cigarettes Substance use type: methamphetamine and other Gender identity (if verbalized by the patient): Male <Yoan Enamorado DO - Last Filed: 05/17/22 06:53> Exam Narrat
--- NOTE | 2022-05-17 07:32 | PC.NURSE ---
Pt states he is thinking of making things up with high velocity and blowing things up.
--- NOTE | 2022-05-17 09:12 | PC.NURSE ---
[id number] accepted transfer to [facility] 0930 trip # [phone]
== END 2022-05-17 10:24 | disposition short-term general hospital (02) ==
PROVIDERS: Emergency Provider Emergency Medicine
DX: J39.8 Other specified diseases of upper respiratory tract (principal); R06.02 Shortness of breath; F20.9 Schizophrenia, unspecified; F41.9 Anxiety disorder, unspecified; F32.A Depression, unspecified; Z91.51 Personal history of suicidal behavior; F17.210 Nicotine dependence, cigarettes, uncomplicated; F15.90 Other stimulant use, unspecified, uncomplicated; Z79.51 Long term (current) use of inhaled steroids; Z20.822 Contact with and (suspected) exposure to COVID-19; Z79.899 Other long term (current) drug therapy
CPT/HCPCS: 36415; 70491; 71045; 73130; 80053; 80307; 84443; 85025; 85055; 87636; 94640; 99285; A9270; Q9967